=== PATIENT | female | born 1970 | race Caucasian/White ===

== ENCOUNTER → 2017-07-04 | Outpatient (CLI) | payer BC ==
[~2017-07-04] MED LIST: LEV125 PO; MULT1CAP41 PO
--- NOTE | 2017-07-04 13:09 | RADIOLOGY IMAGING REPORT ---
[facility] PATIENT NAME: Isamar Byrd : 1970 MR: [id number] V: [id number] EXAM DATE: ORDERING PHYSICIAN: ARMINDA GREGORY TECHNOLOGIST: Location: [facility] [place] Patient: Isamar Byrd : 1970 Visit/Account:[id number] Date of Sevice: 07/04/2017 SHOULDER MIN 2 VIEWS RIGHT HISTORY: Pain in right shoulder, radiates down right arm ADDITIONAL HISTORY: None. COMPARISON: None. FINDINGS: 3 views were obtained of the right shoulder. There is no evidence of acute fracture or dislocation. Glenohumeral joint is not well profiled. Subacromial space is within normal limits. There are no s oft tissue calcifications. AC joint is of normal caliber. There are no significant osteophytes. Cl avicle and visualized ribs are within normal limits. Visualized lung is clear. Goins rods are seen in the thoracic spine. Thoracic scoliosis is present. IMPRESSION: 1. No evidence of acute fracture or dislocation. 2. No significant degenerative changes in the shoulder or AC joint. Report Dictated By: Sherry Zamora MD at 07/04/2017 1:01 PM Report E-Signed By: Sherry Zamora MD at 07/04/2017 1:03 PM WSN:[email or web address]
--- NOTE | 2017-07-04 13:42 | RADIOLOGY IMAGING REPORT ---
FAC[place] [facility] [place] PATIENT NAME: Isamar Byrd : 1970 MR: [id number] V: [id number] EXAM DATE: ORDERING PHYSICIAN: ARMINDA GREGORY TECHNOLOGIST: Location: [facility] Patient: Isamar Byrd : 1970 Visit/Account:[id number] Date of Sevice: 07/04/2017 Exam type: CERVICAL SPINE 2 OR 3 VIEW History: Pain in right shoulder radiating down right arm Comparison: None. Findings: There is straightening of the normal cervical lordosis which may be related to muscle spasm. There i s moderate disc space narrowing at C6-7. The patient's head is canted towards the left on the AP vie w which could be positional or related to spasm. Posterior fixation hardware seen in the visual as p ortion of the upper thoracic spine IMPRESSION: 1. Moderate disc space narrowing C6-7 Straightening of the normal cervical doses which may be related to spasm. Patient's head is canted towards the left on the AP view which may be related to spasm or positioning . Report Dictated By: Honey Christiansen MD at 07/04/2017 1:35 PM Report E-Signed By: Honey Christiansen MD at 07/04/2017 1:38 PM WSN:[email or web address]
== END ==
LOC: RAD 11:06
PROVIDERS: ATTEND Physician Assistant
DX: M47.892 Other spondylosis, cervical region (principal); M25.512 Pain in left shoulder
CPT/HCPCS: 72040

== ENCOUNTER → 2017-11-19 | Outpatient (CLI) | payer BC ==
--- NOTE | 2017-11-19 09:48 | RADIOLOGY IMAGING REPORT ---
FACILITY: [facility] PATIENT NAME: Isamar Byrd : 1970 MR: [id number] V: [id number] EXAM DATE: ORDERING PHYSICIAN: ALEXANDRIA REDDING TECHNOLOGIST: Location: [facility] Patient: Isamar Byrd : 1970 Visit/Account:[id number] Date of Sevice: 11/19/2017 DEXA Scan Clinical history: C7 compression fracture. Comparison: None. HIP: Bone mineral density (BMD) measured in the Left total hip region correlates with a Z-score -1.5 and a T-score of -1.7 which is osteopenia as defined by the World Health Organization. The correspondin g risk of fracture in the hip is 3-4 times increased compared with a young adult reference population . Bone mineral density (BMD) measured in the Femoral Neck region measures 0.721 g/cm2. FOREARM: The bone mineral density (BMD) measured in the ULTRADISTAL Left forearm, where trabecular bone predom inates, correlates with a Z-score -1.2 and a T-score of -1.2 which is osteopenia as defined by the Wo rld Health Organization. The corresponding risk of fracture in the distal forearm is 2-3 times incre ased compared with a young adult reference population. The bone mineral density (BMD) in the MIDSHAFT of the forearm, where cortical bone predominates, uriah elates with a Z-score -1.5 and a T-score of -1.5 which is osteopenia as defined by the World Health O rganization. The corresponding risk of fracture in the midshaft of the forearm is 3 times increased c ompared with a young adult reference population. IMPRESSION: 1. Left Hip: Osteopenia. 2. Femoral Neck: Bone Mineral Density is 0.721 g/cm2 3. Left Forearm: Osteopenia. The next DEXA scan of this patient should include the following sites: Left hip and the left forearm. FRAX? WHO Fracture Risk Assessment Tool link: <http://www.shef.ac.uk/FRAX/tool.jsp?locationValue=9> PLEASE NOTE: 1) The World Health Organization defines low BMD as follows: T-score Normal > -1 Osteopenia < -1 and > -2.5 Osteoporosis < -2.5 without fractures Established osteoporosis < -2.5 with fractures 2) In general, you may wish to consider: Diagnosis Treatment Follow-up DEXA Normal BMD Prevention 2-3 years Osteopenia Prevention/therapy 1-2 years Osteoporosis Therapy Yearly 3) Fracture risk estimated from the T-score is more accurate for vertebral fractures (often spontane ous) than for hip fractures. Report Dictated By: Honey Christiansen MD at 11/19/2017 9:42 AM Report E-Signed By: Honey Christiansen MD at 11/19/2017 9:45 AM WSN:[email or web address]
== END ==
LOC: RAD 01:18
PROVIDERS: ATTEND Physician Assistant
DX: M85.88 Other specified disorders of bone density and structure, other site (principal)
CPT/HCPCS: 77080

== ENCOUNTER 2019-01-21 02:12 | Observation (INO) | payer BC ==
[~2019-01-21] VITALS: Ht 162.6 cm; Wt 71.7 kg
[2019-01-21] VITALS (7 sets, daily range): BP systolic 111–129; BP diastolic 59–91
[~2019-01-21 02:12] MED LIST changes: +CAL1TABL14 PO; +CLOB15CR22 TP; +FLUT16SP19 NS; +LEVO112T44 PO
[2019-01-21] MEDS ORDERED: ONDANSETRON 4 MG/2 ML VIAL ONE ×2 (09:39→15:45)
[2019-01-21] MEDS ORDERED: DEXAMETHASONE SOD 4 MG/ML VIAL ONE (09:39)
[2019-01-21] MEDS ORDERED: ROCURONIUM BR 10 MG/ML 5 ML SY 5 ML ONE ×2 (09:39→14:42)
[2019-01-21] MEDS ORDERED: PROPOFOL EMUL(*) 10MG/ML 20 ML 20 ML ONE (09:39)
[2019-01-21] MEDS ORDERED: SUGAMMADEX SOD 200 MG/2 ML SDV ONE (09:39)
[2019-01-21] MEDS ORDERED: fentaNYL CITR 250 MCG/5 ML AMP ONE (09:39)
[2019-01-21] MEDS ORDERED: LIDOCAINE MPF 1% 5 ML VIAL ONE (09:39)
[2019-01-21] MEDS ORDERED: KETAMINE HCL-NS 50 MG/5 ML SYR ONE (09:40)
[2019-01-21] MEDS ORDERED: HYDROmorphone HCL 2 MG/ML SDV ONE (09:40)
[2019-01-21 10:50] LABS: PLATELET COUNT, AUTOMATED 190 K/uL (150-450)
[2019-01-21] MEDS ORDERED: NORMOSOL R SOLN(*) 1000 ML BAG 1,000 ML IV PRN (10:50)
[2019-01-21] MEDS ORDERED: cefOXitin/DEX(*) 2GM/50ML PREM 50 ML IVPB ONE (10:50)
[2019-01-21] MEDS ORDERED: MIDAZOLAM 2 MG/2 ML VIAL IVP PRN (10:50)
[2019-01-21] MEDS ORDERED: LIDOCAINE/SOD BICARB 8.4% SYR ID ONE (10:50)
[2019-01-21] MEDS ORDERED: FAMOTIDINE 20 MG TAB PO ONE (10:50)
[2019-01-21] MEDS ORDERED: ROPIVACAINE 0.2% 20 ML VIAL ONE ×2 (11:57→15:25)
[2019-01-21] MEDS ORDERED: MANNITOL* (20%)100 GM/500ML BG 500 ML IVPB ONE (11:57)
[2019-01-21] MEDS ORDERED: DLR(*) 1000 ML BAG 1,000 ML IV PRN (16:23)
[2019-01-21] MEDS ORDERED: ONDANSETRON 4 MG/2 ML VIAL IV PRN (16:25)
[2019-01-21] MEDS ORDERED: oxyCODON/ACET (*)5/325MG (CII) 1 TAB TAB PO PRN (16:25)
[2019-01-21] MEDS ORDERED: ACETAMINOPHEN 325 MG TAB PO PRN (16:25)
[2019-01-21] MEDS ORDERED: PROMETHAZINE 25 MG/ML 1 ML AMP IVP PRN (16:25)
[2019-01-21] MEDS ORDERED: HYDROmorphone HCL 2 MG TAB PO PRN (16:25)
[2019-01-21] MEDS ORDERED: SIMETHICONE 80 MG CHEW CHEW PRN (16:25)
[2019-01-21] MEDS ORDERED: INFLUENZA VIRUS VAC 0.5ML SYR IM ONE (16:25)
[2019-01-21] MEDS ORDERED: ZOLPIDEM TARTRATE 10 MG TAB PO PRN (16:25)
[2019-01-21] MEDS ORDERED: OXYC-865 PO (16:34)
[2019-01-21] MEDS ORDERED: DOCU-416 PO (16:34)
[2019-01-21] MEDS ORDERED: IBUP800T37 PO (16:34)
[2019-01-21] MEDS ORDERED: ESTR1PAT99 TD (16:35)
--- NOTE | 2019-01-21 16:51 | Post Operative Note ---
Operative Note - TEMPERING KILN TENDER Operative Day Date: Jan 21, 2019 Time: 16:48 Physicians Surgeon: Mary Malted Milk Masher: Bennie Anesthesia: GETA Diagnosis Pre-Op Diagnosis: Irregular menses Uterine fibroids Enlarged uterus Endometrial hyperplasia Post-Op Diagnosis: same endometriosis Procedure Procedure(s): RATLH adhesiolysis (extra time 120 min) BSO MMC Cysto Specimen Removed:(Maybe N/A): uterus, tubes, ovaries Complications: #[id number] Fluids Fluids: 3000 ml Estimated Blood Loss: 100 ml Dictated Date OP Note Dictated: Jan 21, 2019 Time OP Note Dictated: 16:50 Copies to: SRINIVAS JAIME MD ; SRINIVAS JAIME MD Jan 21, 2019 16:50
[2019-01-21] MEDS ORDERED: ESTRADIOL 0.1 MG/24 HR TDSY TD SCH (16:55)
[2019-01-21] MEDS ORDERED: PROMETHAZINE 25 MG/ML 1 ML AMP ONE (17:15)
--- NOTE | 2019-01-21 18:14 | OPERATIVE REPORT 1 ---
EVENT DATE: January 21, 2019 SURGEON: Rigoberto Hernandez MD ANESTHESIOLOGIST: Héctor Townsend MD ANESTHESIA: General endotracheal. TRANSPORTATION PROGRAM DIRECTOR: Linda Avery PA-C PREOPERATIVE DIAGNOSES 1. Endometrial hyperplasia. 2. Leiomyoma, subserous. 3. Leiomyoma, submucous. 4. Enlarged uterus. 5. Irregular menstruation. 6. Cysts of the uterine corpus. 7. Ovarian cysts. POSTOPERATIVE DIAGNOSES 1. Endometrial hyperplasia. 2. Leiomyoma, subserous. 3. Leiomyoma, submucous. 4. Enlarged uterus. 5. Irregular menstruation. 6. Cysts of the uterine corpus. 7. Ovarian cysts. 8. Severe endometriosis. PROCEDURES PERFORMED 1. Robotic-assisted total laparoscopic hysterectomy (120 minutes additional time spent due to the difficulty of the case and skill and expertise required to complete the procedure). 2. Lysis of adhesions. 3. Bilateral salpingo-oophorectomy. 4. Modified Tripp culdoplasty. 5. Diagnostic cystoscopy. ESTIMATED BLOOD LOSS 100 mL. FLUIDS Crystalloid 3000 mL IV. FINDINGS Upon inspecting the pelvis on entering the abdomen, she was noted to have an extremely large uterus with obvious fibroids present within the uterine myometrium as well as subserosal. Both ovaries and tubes were adhered to the posterior uterus. There was obvious endometriosis involving the posterior uterus and the anterior uterus where there were cystic areas observed and scarring of the parietal peritoneum overlying the anterior uterus. There was some endometriosis involving the descending colon and epiploic fat. She also had a narrowed introitus as she is virginal and has not been sexually active through her life. This required a first-degree episiotomy in order to make room for equipment. PROCEDURE IN DETAIL The patient was brought to the operating room with a working IV. She was placed in the dorsal supine position on the operating table and placed under general endotracheal anesthesia. She was then moved to the dorsal lithotomy position and prepped and draped in the usual sterile fashion. On inspecting the vaginal introitus, she had an intact hymen and a narrowed vaginal opening due to her virginal status. After much attempts at being able to get a speculum within the vagina, it was decided to perform a first-degree episiotomy to interrupt the hymenal ring, which was a significant portion of the difficulty. Once this had been performed, and a light amount of cautery was applied to control bleeding, a weighted speculum was placed in the vagina. A curved Cecilia was then used to visualize the cervix, which was grasped on the anterior lip with a single- toothed tenaculum. It was sounded to a depth of 11 cm. The cervix was carefully dilated, and the medium size VCare uterine manipulator was selected and assembled, passed through the cervix into the uterus, balloon inflated and secured, and the VCare cup was sutured to the cervix. The pneumo cup was approximated against this cup and locked in place. Thomas catheter was placed to dependent drainage. Legs were brought back to the supine position, and gloves were changed. The uterus was palpable below her abdomen with the assistance of the uterine manipulator, and then we measured 12 cm cephalad from here. The area was marked on the abdomen. The area was infiltrated with 0.2% Naropin, and then an 8 mm stab incision was made. The anterior abdominal wall was elevated while a Veress needle was passed through this incision into the abdomen. Pneumoperitoneum was created to an intra-abdominal pressure of 20 mmHg. Two additional ports were marked out 8 cm left lateral of the umbilical port and two additional right lateral of the umbilical port. The Veress needle was removed, and an 8 mm bladeless trocar was passed through this incision into the abdomen while stabilizing the anterior abdominal wall. This was performed atraumatically. Through this port, the camera was inserted, and the additional robotic ports were placed, two right lateral and one left lateral of the umbilical port, as well as an occupational therapist assistants port 8 cm left lateral of the robotic port. These were all placed under direct visualization through the scope and without incident. The patient was moved to the Trendelenburg position. The pelvis was surveyed with the above findings noted. The robot was brought overlying the patient, and the umbilical port was docked, and the camera was placed. Targeting procedure was performed and completed, and then all remaining arms were docked. Instruments were placed and brought into the abdomen under direct visualization. Once all ports had been secured and instruments had been placed, I scrubbed out and presented to the console for the procedure. Initially, I went about trying to restore her pelvic anatomy. The right tube and ovary were densely adhered to the posterior uterus. I spent considerable time here dissecting this ovary away from the posterior uterus and to liberate it from its pelvic adhesions. During this process, the right ovarian cyst was opened, and a viscous chocolate fluid was extruded consistent with an endometrioma. Once that ovary had been sufficiently liberated, the same was performed on the left side, and additional time was required to release this tube and ovary from its pelvic adhesions. The IP ligament had been retracted toward the round ligament; therefore, care was taken to identify the ureters on both sides and trace their course in order to avoid any injury to the ureters. Attention was then turned anteriorly where the anterior peritoneum was carefully taken down off the uterus and dissecting through the cystic areas in that location in order to encounter the cervix beneath. Once this had been performed, I was then able to proceed stepwise through the hysterectomy. The right tube and ovary were put on medial stretch, verifying again the ureter was well away. The IP ligament was cauterized and transected with the vessel sealer and then moved up to the round ligament. This was then cauterized and transected in between the broad ligament, which was into anterior and posterior leaflets. The anterior leaflet followed along to the previous dissection, and posterior leaflet was taken down carefully to skeletonize the uterine vasculature. This further helped identify where the VCare cup was indenting from below from the vagina, and the anterior colpotomy was then performed at this time in order to identify the cup. This demarcated the uterine vasculature, which was then cauterized on the perpendicular fascia and then transected, followed by parallel bites along the lateral uterus down to and overlying the VCare cup. On the contralateral side, the same procedure was performed, verifying the ureter, tracing its course, and transecting the IP ligament with the vessel sealer, dissecting toward the round ligament which was then cauterized and transected, entering the broad ligament which was into anterior and posterior leaflets. Anteriorly, this was dissected completing the anterior dissection, and posteriorly, the uterine vasculature was skeletonized. Uterine vessels were then cauterized on a perpendicular fashion, transected, and then parallel bites along the lateral uterus down to and overlying the VCare cup was performed. At this point, I was able to extend the colpotomy circumferentially around the cervix through the uterosacral ligaments bilaterally, which were significantly inflamed and thickened due to the endometriosis in those areas to the contralateral side, releasing the uterus from its pelvic attachment. The uterus now was too big to be removed through the vagina; therefore, additional time was taken at this point to morcellate the uterus into portions and remove the uterus through the vagina. Several uterine fibroids were removed in order to decompress its size. The uterus was segmented into three pieces, which were able to be removed through the vagina, followed by the remaining fibroids, and all specimens were sent to Pathology. There did appear to be endometrial polyps as well. The pelvis was then copiously irrigated and suctioned dry. There were no visible active bleeders. Therefore, instruments were changed for suturing. An 0 Vicryl was used to suture ligate the vagina to the ipsilateral uterosacral ligament in a [id number] fashion, securing the angles of the vagina. The remaining vaginal cuff was closed with 2-0 V-Loc suture in a running unlocking fashion. On completion, there was excellent hemostasis, and no visible complications. Pelvis was again copiously irrigated and suctioned out. At this point, the robotic portion of the procedure was terminated. All instruments were removed. The trocars were removed from the patient's abdomen. The robot was taken away. Skin incisions were repaired with 4-0 Monocryl simple subdermal and covered with Dermabond skin adhesive. I scrubbed back in and performed diagnostic cystoscopy after removing the Thomas catheter, identifying the bladder. On inspecting its entirety, it was found to be without injury. Both ureters were observed to emit strong urine jets. Therefore, the bladder was drained. Thomas catheter was left out. The patient was returned to the dorsal supine position. Care was taken at this point to infiltrate the introitus with local anesthetic, followed by repair of the first-degree episiotomy using a 3-0 chromic. There was also a small tear periurethral secondary to the manipulation required to perform the procedure. This also was repaired, and excellent hemostasis was observed. She was gently awakened from general anesthesia in stable condition and taken to Recovery. Sponge, lap, needle, and instrument counts were all correct times three. IRA
[2019-01-21] MEDS: KETOROLAC 30 MG/ML VIAL IVP SCH (21:06)
[2019-01-21] MEDS: FAMOTIDINE 20 MG TAB PO SCH (21:07)
[2019-01-21] MEDS: DOCUSATE CALCIUM 240 MG CAP PO SCH (21:07)
[2019-01-22 00:26] VITALS: BP 102/59
[2019-01-22] MEDS: KETOROLAC 30 MG/ML VIAL IVP SCH (04:12)
[2019-01-22 04:27] VITALS: BP 95/50
[2019-01-22] MEDS ORDERED: LEVOTHYROXINE SOD 0.112 MG TAB PO SCH (06:00)
[2019-01-22 07:30] VITALS: BP 92/62
[2019-01-22 07:44] LABS: PLATELET COUNT, AUTOMATED 186 K/uL (150-450)
--- NOTE | 2019-01-22 08:40 | OB/GYN Progress Note ---
OB Subjective Progress Notes Subjective Feeling well. Pain well controlled and no nausea. Voiding well. Has ambulated. Has a pain in right upper chest last night the moved now to below her right breast. No SOB or leg swelling or pain. GI: NEG Nausea : Voiding Well Pain: Mild OB Objective Physical Exam Vital Signs Date Time Temp Pulse Resp B/P (MAP) Pulse Ox O2 Delivery O2 Flow Rate FiO2 01/22/19 04:27 99.0 80 16 95/50 (65) 94 Nasal Cannula 1.0 Intake and Output 01/22/19 07:04 Intake Total 3620 ml Output Total 1500 ml Balance 2120 ml Intake Oral 520 ml IV Total 3100 ml Output Urine Total 1400 ml Estimated Blood Loss 100 ml # Voids 2 General Appearance: Alert/Awake/No Acute Distress Neurological: No Gross deficits Eyes: Normal Extraocular Movement & Vison Neck: No Masses Cardiovascular: Normal Rhythm & Peripheral Pulses, Regular Rate and Rhythm Respiratory: No Respiratory Distress, Clear to Auscultation Abdomen: Soft, Non-Tender, Non-Distended Incision: Clean, Dry, Intact, Dermabond Extremities: No Cyanosis,Clubbing or Edema Integumentary: Skin Intact without Lesions or Rash Psychological: Alert & Oriented X3, Appropriate Mood & Affect Result Diagram: 01/22/19 0644 Assessment and Plan SOFTWARE BUILD ENGINEER Plan: Routine Post-Op Care, Discharge Home Today Problems: (1) Other specified aftercare following surgery Assessment & Plan: Suspecting trapped gases as cause of pain. Encouraged ambulating. Wants to go home today and I feel this is appropriate. Reviewed her surgical findings and recovery. F/U in office in 2 weeks. (2) History of robot-assisted laparoscopic hysterectomy SRINIVAS JAIME MD Jan 22, 2019 08:40
--- NOTE | 2019-01-22 08:41 | Short(Outpt) Discharge Summary ---
Discharge Summary Reason for Hosp/Final Diag: (1) Other specified aftercare following surgery Hospital Course & Plan: Suspecting trapped gases as cause of pain. Encouraged ambulating. Wants to go home today and I feel this is appropriate. Reviewed her surgical findings and recovery. F/U in office in 2 weeks. (2) History of robot-assisted laparoscopic hysterectomy Departure Discharge to: Home, Self Care Discharge Instructions Home Meds Active Scripts Oxycodone Hcl/Acetaminophen (PERCOCET 5-325 MG TABLET) 1 Each Tablet, 1 EACH PO Q4-6H PRN for PAIN, #20 TAB 0 Refills TAKE 1 TABLET NEEDED FOR PAIN - NO CLOSER THAN EVERY 4-6 HOURS. Prov:ALEXANDRIA REDDING 01/21/19 Reported Medications Clobetasol Propionate/Emoll (CLOBETASOL EMOLLIENT 0.05% CRM) 15 Gm Cream..g., 1 EDUAR TP DAILY PRN for ITCHING 01/14/19 Fluticasone Prop 50 Mcg Ns (FLONASE 50 MCG NS) 16 Gm [place].susp, 2 SPRAYS NS QDAY PRN for ALLERGY SYMPTOMS, BOT 01/14/19 Spencer Cit/Mag/D3/Zn/Deputy Program Manager/Chris/Bor (CITRACAL-VIT D + MAGNESIUM TAB) 1 Each Tablet, 1 EACH PO DAILY 01/14/19 Levothyroxine Sodium (SYNTHROID) 112 Mcg Tablet, 112 MCG PO QDAY, TAB 01/14/19 Multivitamins W-Minerals (Multivitamin) 1 Cap Capsule, 1 CAP PO DAILY 03/28/07 Follow up Referrals: PHYSICIAN COMPENSATION ANALYST - In Two Weeks @ [facility] with SRINIVAS JAIME MD Diet: Regular Activity: As Tolerated, No Heavy Lifting Copies to: SRINIVAS JAIME MD ; SRINIVAS JAIME MD Jan 22, 2019 08:41
[2019-01-22] MEDS: FAMOTIDINE 20 MG TAB PO SCH (09:30)
[2019-01-22] MEDS: DOCUSATE CALCIUM 240 MG CAP PO SCH (09:30)
[2019-01-22 09:36] VITALS: Ht 162.6 cm; Wt 71.7 kg
[2019-01-22] MEDS ORDERED: GLYCOPYRROLATE 0.2MG/ML 1 ML INJ ONE (15:45)
[2019-01-22] MEDS ORDERED: SUGAMMADEX SOD 500 MG/5 ML SDV ONE (15:45)
[2019-01-22] MEDS ORDERED: IBUPROFEN 800 MG TAB PO PRN (16:00)
== END 2019-01-22 08:40 | disposition home or self-care (01) ==
LOC: OR 02:12 → INTOOBSV 17:45 → PED 17:45
PROVIDERS: ADMIT Obstetrics & Gynecology; ATTEND Obstetrics & Gynecology
DX: N85.00 Endometrial hyperplasia, unspecified (principal); D25.2 Subserosal leiomyoma of uterus; D25.0 Submucous leiomyoma of uterus; N85.2 Hypertrophy of uterus; N92.6 Irregular menstruation, unspecified; N85.8 Other specified noninflammatory disorders of uterus; N83.209 Unspecified ovarian cyst, unspecified side; E03.9 Hypothyroidism, unspecified; Z79.899 Other long term (current) drug therapy
CPT/HCPCS: 36415; 58573; 84703; 85025; 88305; 88307; G0378; J0694; J1100; J1170; J1885; J2001; J2250; J2405; J2550; J2704; J2795; J3010; J3490